=== PATIENT | male | born 1990 | race Two or more races ===

== ENCOUNTER 2018-07-12 18:51 | Emergency (ER) | payer BC ==
[2018-07-12] MEDS ORDERED: Lidocaine 1% with EPINEPHrine 1:100,000 20 ML MDV INJECT ONE (19:18)
[2018-07-12] MEDS ORDERED: Clindamycin HCl 150 MG Cap PO ONE (19:24)
--- NOTE | 2018-07-12 19:24 | EDM.PDOC ---
ED HPI GENERAL MEDICAL PROBLEM - General Chief Complaint: Skin Complaint Stated Complaint: PT HAS LUMP ON BACK Time Seen by Provider: 07/12/18 19:10 - History of Present Illness INITIAL COMMENTS - FREE TEXT/NARRATIVE: HISTORY AND PHYSICAL: History of present illness: The patient is a 28-year-old male who presents with complaints of a swollen area at the area and left shoulder/trapezius area that he says he has had for a long time but it has grown in the last 3 days. He says that in the past his girlfriend used to pick at it and there would be drainage but it always seemed to go away and come back. He didn't do anything specific to aggravate the area but is noticed increased pain and swelling over the last 3 days. He says there has been some drainage but is not currently draining. He is able to utilize the upper extremity and has no other systemic complaints such as fever chills nausea vomiting or other rashes or lesions elsewhere on his body. Review of systems: As per history of present illness and below otherwise all systems reviewed and negative. Past medical history: As per history of present illness and as reviewed below otherwise noncontributory. Surgical history: As per history of present illness and as reviewed below otherwise noncontributory. Social history: No reported history of drug or alcohol abuse. Family history: As per history of present illness and as reviewed below otherwise noncontributory. Physical exam: General: Well-developed well-nourished man who is nontoxic and vital signs are noted by me HEENT: Atraumatic, normocephalic, negative for conjunctival pallor or scleral icterus, mucous membranes moist, throat clear, neck supple, nontender, trachea midline. Lungs: Clear to auscultation, breath sounds equal bilaterally, chest nontender. Heart: S1S2, regular rate and rhythm no overt murmurs Abdomen: Soft, nondistended, nontender. NABS Pelvis: Deferred. Genitourinary: Deferred. Rectal: Deferred. Extremities: Atraumatic, range of motion without defects or deficits Neurovascular unremarkable. Neuro: Awake, alert, oriented. Cranial nerves II through XII unremarkable. Cerebellum unremarkable. Motor and sensory unremarkable throughout. Exam nonfocal. Skin: At the posterior left shoulder area just below the trapezius on the left there is a 4 x 5 cm area of induration with a central area of down see fluctuance and tenderness. There is ill-defined pink erythema on the surface layer and the area is well demarcated and mobile. The remainder of the soft tissue has no evidence of erythema tenderness warmth and the patient can range of motion at the shoulder. There is no discrete punctum or drainage appreciated on palpation Diagnostics: Wound culture Therapeutics: clindamycin, incision and drainage with packing Procedure note: After the procedure was explained to the patient lidocaine with epinephrine was infused in a localized fashion and the area was prepped and draped in sterile fashion. Using a #11 blade scalpel an incision was made and copious pus was expressed. A hemostat was used to break up any loculations and an iodoform pack was placed. Wound culture from the fluid was taken and sent to the lab. There are no complications and the patient tolerated the procedure well. He was made aware that he needs to return here in 24-36 hours for pack removal. The procedure was performed by Lewis Loera NP I informed the patient that this potentially is a recurrent cyst and it ordered to have definitive care would need to be removed once this is healed by a plastic surgeon or general surgeon. I will give him the appropriate referrals to follow-up once this is healed but in the interim he will be returning here for pack removal. Impression: Left posterior shoulder abscess Definitive disposition and diagnosis as appropriate pending reevaluation and review of above. left posterior shoulder Pain Score (Numeric/FACES): 6 - Related Data Allergies Allergy/AdvReac Type Severity Reaction Status Date / Time Sulfa (Sulfonamide Allergy Cannot Verified 07/12/18 19:07 Antibiotics) Remember Home Meds: Home Meds . [No Known Home Meds] 07/12/18 [History] Past Medical History Genitourinary History: Reports: Renal Calculus - Infectious Disease History Infectious Disease History: Reports: Chicken Pox Social & Family History - Family History Family Medical History: Noncontributory - Tobacco Use Smoking Status *Q: Never Smoker Second Hand Smoke Exposure: No - Caffeine Use Caffeine Use: Reports: Energy Drinks - Recreational Drug Use Recreational Drug Use: No ED ROS GENERAL - Review of Systems Review Of Systems: ROS reveals no pertinent complaints other than HPI. ED EXAM, SKIN/RASH Exam: See Below (See dictation) Course - Vital Signs Last Recorded V/S: Last Vital Signs Temp 37.2 C 07/12/18 19:08 Pulse 78 07/12/18 19:08 Resp 16 07/12/18 19:08 BP 133/96 H 07/12/18 19:08 Pulse Ox 99 07/12/18 19:08 - Orders/Labs/Meds Orders: Active Orders 24 hr Category Date Time Status CULTURE WOUND [RM] Stat Lab 07/12/18 19:30 Received Meds: Medications Discontinued Medications Generic Name Dose Route Start Last Admin Trade Name Philippe PRN Reason Stop Dose Admin Clindamycin HCl 300 mg 07/12/18 19:24 Cleocin PO 07/12/18 19:25 ONETIME ONE Lidocaine/Epinephrine 20 ml 07/12/18 19:18 07/12/18 19:22 Xylocaine 1% With Epinephrine 1:100,000 INJECT 07/12/18 19:19 20 ml ONETIME ONE Administration Departure - Departure Time of Disposition: 19:32 Disposition: Home, Self-Care 01 Condition: Good Clinical Impression: Abscess - Discharge Information Referrals: PCP,None [Primary Care Provider] - Forms: ED Department Discharge Additional Instructions: The following information is given to patients seen in the emergency department who are being discharged to home. This information is to outline your options for follow-up care. We provide all patients seen in our emergency department with a follow-up referral. The need for follow-up, as well as the timing and circumstances, are variable depending upon the specifics of your emergency department visit. If you don't have a primary care physician on staff, we will provide you with a referral. We always advise you to contact your personal physician following an emergency department visit to inform them of the circumstance of the visit and for follow-up with them and/or the need for any referrals to a consulting specialist. The emergency department will also refer you to a specialist when appropriate. This referral assures that you have the opportunity for followup care with a specialist. All of these measure are taken in an effort to provide you with optimal care, which includes your followup. Under all circumstances we always encourage you to contact your private physician who remains a resource for coordinating your care. When calling for followup care, please make the office aware that this follow-up is from your recent emergency room visit. If for any reason you are refused follow-up, please contact the [facility] emergency department at and ask to speak to the emergency department charge nurse. [facility] and Hand Surgery Professional Building [address] [place] [id number] [facility]General [facility] Professional Building [address] [place] [phone] Please keep the dressing that is applied here in the ED on and leave pack that was placed in the ER undisturbed and follow-up. In 24-36 hours for reevaluation and pack removal. Expect drainage from the area and replace the gauze as needed. Please take antibiotics as directed and do not manipulate the area on your back. Please call 1 of our specialty clinics as listed above once the area is healed for reevaluation of the area to see if the cyst has recurred and you can schedule definitive removal. Use [id number] Tylenol and ibuprofen for pain. - My Orders Last 24 Hours: My Active Orders 07/12/18 19:30 CULTURE WOUND [RM] Stat - Assessment/Plan Last 24 Hours: My Active Orders 07/12/18 19:30 CULTURE WOUND [RM] Stat
== END 2018-07-12 19:40 | disposition home or self-care (01) ==
LOC: MW.ED 18:51
DX: L02.414 Cutaneous abscess of left upper limb (principal)
CPT/HCPCS: 10061; 87070; 99283; A9270